=== PATIENT | female | born 1965 | race Hispanic/Latino ===

== ENCOUNTER → 2025-06-16 | Outpatient (CLI) | payer BC ==
--- NOTE | 2025-06-17 09:54 | HMCIMG ---
EXAM: CT Chest Without IV contrast. CLINICAL HISTORY: Cough, unspecified TECHNIQUE: Axial computed tomography images of the chest without intravenous contrast. COMPARISON: None provided. FINDINGS: LUNGS: Bilateral centrilobular nodules, some demonstrating a tree-in-bud pattern, involving both lungs. There is atelectasis of the medial segment of the right middle lobe and inferior lingula with mild associated volume loss. Mild bronchiectasis is noted in the left lower lobe. A patchy subpleural opacity is seen in the posterior basal segment of the right lower lobe. PLEURAL SPACES: No pneumothorax evident. No pleural effusions. HEART: No cardiomegaly. No significant pericardial effusion. LYMPH NODES: No lymphadenopathy is evident. UPPER ABDOMEN: The upper abdominal solid organs are unremarkable. BONES: No acute osseous abnormality. IMPRESSION: Bilateral centrilobular nodules, some demonstrating a tree-in-bud pattern, involving both lungs. This likely represents endobronchial spread of infection. Patchy subpleural opacity is seen in the posterior basal segment of the right lower lobe. This is also likely infectious. Atelectasis of the medial segment of the right middle lobe and inferior lingula with mild associated volume loss. Mild bronchiectasis is noted in the left lower lobe. /[place]
== END | disposition home or self-care (01) ==
LOC: RAH 13:34
PROVIDERS: ATTEND Internal Medicine
DX: J43.2 Centrilobular emphysema (principal); J98.11 Atelectasis; J47.9 Bronchiectasis, uncomplicated; R06.02 Shortness of breath; R05.9 Cough, unspecified
CPT/HCPCS: 71250